=== PATIENT | female | born 1985 | race American Indian/Alaskan Native ===

== ENCOUNTER 2017-02-25 19:34 | Emergency (ER) | payer OTHER ==
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
[2017-02-25] MEDS ORDERED: TYLENOL PO ONE (22:25)
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
[2017-02-25] MEDS ORDERED: NORVASC PO ONE (22:55)
[2017-02-25 23:23] VITALS: BP 164/104
== END 2017-02-25 23:20 | disposition home or self-care (01) ==
LOC: ED 19:34
DX: S46.819A Strain of other muscles, fascia and tendons at shoulder and upper arm level, unspecified arm, initial encounter (principal); I10 Essential (primary) hypertension; V49.49XA Driver injured in collision with other motor vehicles in traffic accident, initial encounter; Y93.9 Activity, unspecified; Y92.9 Unspecified place or not applicable; Y99.9 Unspecified external cause status
CPT/HCPCS: 70450; 72125; 81025